=== PATIENT | female | born 1950 | race Asian ===

== ENCOUNTER 2017-04-30 10:58 | Day surgery (SDC) | payer MEDICARE ==
[~2017-04-30] VITALS: Ht 152.4 cm; Wt 60.5 kg
[2017-04-30 13:02] LABS: BASOPHILS 0.4 % (0-2); EOSINOPHILS 2.5 % (0-7); HEMATOCRIT 39.8 % (36.0-48.0); HEMOGLOBIN 12.9 g/dL (12-16); IMMATURE GRANULOCYTES 0.2 % (0-5); LYMPHOCYTES 35.1 % (15-50); MCH 31.1 pg (26.0-34.0); MCHC 32.4 g/dL (31.0-37.0); MCV 95.9 fL (80.0-100.0); MEAN PLATELET VOLUME 11.2 fL (7.4-10.4); MONOCYTES 8.1 % (2-11); NEUTROPHILS 53.7 % (40-80); PLATELET COUNT 192 10x3/uL (130-400); RBC 4.15 10x6/uL (4.00-5.40); RDW 13.6 % (11.5-14.5); WBC 5.5 10x3/uL (4.8-10.8)
[2017-04-30] MEDS ORDERED: ZANAFLEX4 MG PO (13:11)
[2017-04-30] MEDS ORDERED: ADVAIR 500/501 DISK INH (13:11)
[2017-04-30] MEDS ORDERED: SINGULAIR10 MG PO (13:11)
[2017-04-30] MEDS ORDERED: LIPITOR40 MG PO (13:12)
[2017-04-30] MEDS ORDERED: PEPCID AC20 MG PO (13:12)
[2017-04-30] MEDS ORDERED: HYDROCODONE-APA1 TAB PO (13:12)
[2017-04-30] MEDS ORDERED: PAXIL40 MG PO (13:13)
[2017-04-30 13:20] VITALS: BP 148/65; Ht 152.4 cm; Wt 60.5 kg
--- NOTE | 2017-05-02 16:52 | PRO ---
PATIENT:KASSIE RUIZ MEDICAL RECORD: [id number] : 50 LOCATION:[facility] ADMISSION DATE: 04/30/17 PROCEDURE PERFORMED BY: JORDI HAINES DO PROCEDURE DATE: 04/30/17 PROCEDURE: Esophagogastroduodenoscopy with balloon dilation. INDICATION: Previously identified esophageal ring. SCOPE: Olympus video gastroscope. MEDICATIONS: Propofol 150 milligrams IV per anesthesia. ESTIMATED BLOOD LOSS: Minimal. COMPLICATIONS: None. FINDINGS: Informed consent was given. The patient was made comfortable with the above medication. After reaching an adequate level of sedation by slow IV push, the patient was placed on her left side. The endoscope was then advanced under direct visualization through the mouth to the second portion of the duodenum. In the upper esophagus, the site where the previously identified esophageal ring was visualized, based on distance from the incisors at approximately 17 centimeters as well as a ulcer which was present at the site likely related to biopsies. There was no ring visualized on this examination. The endoscope easily traversed the site. The middle esophagus appeared normal. At the distal esophagus just proximal to the gastroesophageal junction, there was a Schatzki's ring. This was easily traversed with the endoscope, but was later dilated with an 18 to 20 millimeter balloon up to 20 millimeters in diameter. The maneuver was successful. There was some evidence of reflux esophagitis located at the gastroesophageal junction. The endoscope was advanced into the stomach and retroflexed to view the cardia where a hiatal hernia was present and previously identified. The fundus and body of the stomach appeared normal, but there was some granularity and erythema within the stomach itself. This was most prominent in the antrum and prepyloric region. There were three superficial ulcerations with clean bases located there. These were likely related to the previous endoscopy where biopsies were taken. The endoscope was passed through the pylorus into the duodenum where the bulb and second portion of the duodenum appeared normal. The endoscope was then withdrawn from the patient. The patient tolerated the procedure well and there were no complications. IMPRESSIONS: 1. Ulcers located in the proximal esophagus where the esophageal ring was previously identified as well as at the gastroesophageal junction and antrum and prepyloric region. These are likely related to the recent endoscopy and biopsies with cold forceps. 2. Schatzki's ring located at the gastroesophageal junction. This was dilated up to 20 millimeters in diameter successfully. 3. Granularity and erythema of the stomach consistent with gastritis. No biopsies were taken as this was just done April 26. 4. Small sliding hiatal hernia. PLAN/RECOMMENDATIONS: 1. Discharge home when recovery parameters are met. 2. Continue current medications and diet. PROCEDURE NOTE [id number] KASSIE RUIZ 3. Follow symptoms. If dysphagia persists, I would recommend barium esophagogram to look further at the proximal and middle esophagus. If this does indeed show a ring, the patient will be brought back for repeat endoscopy and dilation at that location whether or not an obvious ring is visualized. 4. Strict gastroesophageal reflux disease diet and reflux precautions. 5. Avoid nonsteroidal anti-inflammatory drugs VOISE,JORDI Mcdaniel DO at 1652 CC: [id number] DICTATION DATE: 04/30/172201 PERSONAL COMPUTER NETWORK ANALYST: MARION 04/30/172201 [facility] 04/30/17 [id number] [place] [address]
== END 2017-04-30 15:45 | disposition home or self-care (01) ==
LOC: D.OPS 10:58
PROVIDERS: Anesthesiology
DX: K22.2 Esophageal obstruction (principal); K22.10 Ulcer of esophagus without bleeding; K44.9 Diaphragmatic hernia without obstruction or gangrene; Z01.812 Encounter for preprocedural laboratory examination

== ENCOUNTER 2017-12-20 07:20 | Day surgery (SDC) | payer MEDICARE ==
[2017-12-19 13:28] LABS: HEMATOCRIT 40.9 % (36.0-48.0); HEMOGLOBIN 13.8 g/dL (12-16); MCH 31.4 pg (26.0-34.0); MCHC 33.7 g/dL (31.0-37.0); MCV 93.2 fL (80.0-100.0); MEAN PLATELET VOLUME 11.1 fL (7.4-10.4); RBC 4.39 10x6/uL (4.00-5.40); RDW 13.7 % (11.5-14.5); WBC 9.6 10x3/uL (4.8-10.8)
[2017-12-19 13:36] LABS: CALCIUM 9.2 mg/dL (8.5-10.1); CARBON DIOXIDE 29.8 mmol/L (21.0-32.0); CREATININE - SERUM 1.8 mg/dL (0.6-1.3); POTASSIUM - SERUM 3.8 mmol/L (3.5-5.1)
--- NOTE | ~2017-12-20 | OP ---
PATIENT NAME: KASSIE RUIZ MEDICAL RECORD: [id number] :50 LOCATION:[facility] ADMISSION DATE: SURGEON: TREMAINE ESPINOSA MD DATE OF OPERATION: 12/20/2017 PREOPERATIVE DIAGNOSIS: Medial meniscus tear of the right knee. POSTOPERATIVE DIAGNOSIS: Medial meniscus tear of the right knee. PROCEDURE: Arthroscopic partial medial meniscectomy of the right knee. ANESTHESIA: General. INTRAOPERATIVE COMPLICATIONS: None. SUMMARY OF PATHOLOGIC FINDINGS: Consistent with the preoperative diagnosis. She has a complex tear of the posterior horn of the medial meniscus. OPERATIVE SUMMARY IN DETAIL: After obtaining the appropriate preoperative orthopedic surgery consent as well as anesthetic consultation, evaluation and clearance, the patient was brought to the operating room and placed on the operating table in supine position. After adequate general laryngeal mask was administered, tourniquet was placed about the proximal aspect of the right lower extremity. The right lower extremity was then prepped and draped in routine sterile fashion. The leg was elevated and exsanguinated, tourniquet was inflated to 350 mmHg. Routine inferolateral portal was established followed by superomedial portal and inferomedial portal. Diagnostic arthroscopy revealed the above findings. Combination of meniscotome as well as an arthroscopic resector was utilized to debride the meniscus back to stable meniscal elements. Good residual peripheral meniscus was retained. Having completed this, the knee was insufflated with 30 cc of 0.25% Marcaine and 80 mg of Depo-Medrol. Arthroscopy portals were closed in routine interrupted fashion using 4-0 Prolene. Sterile dressings were applied. The patient was awakened and taken to recovery room in stable condition. All final needle and sponge counts were correct. TRANSINT:[id number] Voice Confirmation ID: [id number] DOCUMENT ID: [id number] TREMAINE ESPINOSA MD at 1503 CC: [id number] DICTATION DATE: 12/20/17 1120 CHEMICAL WORKER: 12/20/17 [id number] [place] [id number]
[~2017-12-20 07:20] MED LIST: ACTIVELLA 1 MG-1 TAB PO; ACTOS15 MG PO; ADVAIR 500/501 DISK INH; CENTRUM SILVER1 TA1 PO; HYDROCODONE-APA1 TAB PO; HYDROXYZINE HCL10 MG PO; LIPITOR40 MG PO; PAXIL40 MG PO; PEPCID AC20 MG PO; PROAIR HFA8.5 GM INH; SINGULAIR10 MG PO; ZANAFLEX4 MG PO
[2017-12-20 08:36] VITALS: BP 1323/46; BMI 19.9
[2017-12-20] MEDS ORDERED: HYDROCODONE-APA1 TAB PO (11:35)
== END 2017-12-20 13:00 | disposition home or self-care (01) ==
LOC: D.OPS 07:20 → D.PAN 09:30 → D.OPS 09:30
PROVIDERS: Anesthesiology
DX: S83.241A Other tear of medial meniscus, current injury, right knee, initial encounter (principal); J45.909 Unspecified asthma, uncomplicated; E11.9 Type 2 diabetes mellitus without complications; K21.9 Gastro-esophageal reflux disease without esophagitis; Z01.812 Encounter for preprocedural laboratory examination

== ENCOUNTER 2019-06-09 09:45 | Day surgery (SDC) | payer MEDICARE ==
[~2019-06-09] VITALS: Ht 152.4 cm; Wt 63.2 kg
[2019-06-09 10:18] LABS: HEMATOCRIT 43.3 % (36.0-48.0); HEMOGLOBIN 14.8 g/dL (12-16); MCH 31.8 pg (26.0-34.0); MCHC 34.2 g/dL (31.0-37.0); MCV 92.9 fL (80.0-100.0); MEAN PLATELET VOLUME 11.3 fL (7.4-10.4); RBC 4.66 10x6/uL (4.00-5.40); WBC 6.4 10x3/uL (4.8-10.8)
[2019-06-09 10:23] LABS: ANION GAP 15.3 mmol/L (8-16); CALCIUM 9.7 mg/dL (8.5-10.1); CARBON DIOXIDE 27.8 mmol/L (21.0-32.0); CREATININE - SERUM 1.5 mg/dL (0.6-1.3); POTASSIUM - SERUM 4.1 mmol/L (3.5-5.1)
[2019-06-09 10:52] VITALS: BP 123/50; Ht 152.4 cm; Wt 63.2 kg
--- NOTE | 2019-06-09 13:59 | NUR ---
DC INSTRUCTIONS GIVEN TO PT/SPOUSE. STATE UNDERSTANDING. DC'D IV CATH FULLY INTACT.
--- NOTE | 2019-06-09 14:11 | NUR ---
PT LEFT UNIT VIA WC AT 1407
--- NOTE | 2019-06-10 18:12 | OP ---
PATIENT NAME: KASSIE RUIZ MEDICAL RECORD: [id number] :50 LOCATION:[facility] ADMISSION DATE: SURGEON: JORDI HAINES DO DATE OF OPERATION: 06/09/2019 PROCEDURE: Colonoscopy with polypectomy. INDICATIONS FOR PROCEDURE: Constipation, change in bowel habits, lower abdominal pain. SCOPE: Olympus video pediatric colonoscope. MEDICATIONS: Propofol 420 mg IV per anesthesia. WITHDRAWAL TIME: 10 minutes. ESTIMATED BLOOD LOSS: Minimal. COMPLICATIONS: None. FINDINGS: Informed consent was given. The patient was made comfortable with the above medication. After reaching an adequate level of sedation by slow IV push, the patient was placed on her left side. A digital rectal examination was performed and was normal. The endoscope was then advanced under direct visualization through the rectum to the cecum, confirmed by the presence of the appendiceal orifice and ileocecal valve. The endoscope was slowly withdrawn and mucosa was carefully examined. The prep quality was good. There were 3 polyps visualized on today's examination. Two were located in the transverse colon. They were both benign appearing and mixed between flat sessile polyps. They ranged in size from 4-6 mm in diameter. They were both removed using a hot snare. In the sigmoid colon, there was a single benign-appearing sessile polyp, which measured approximately 2-3 mm in diameter. It was removed using hot forceps in 1 piece. There was evidence of moderate diverticulosis throughout all segments of the colon. Retroflexion was performed in the rectum with visualization of grade II internal hemorrhoids without active bleeding. The endoscope was withdrawn from the patient. The patient tolerated the procedure well and there were no complications. IMPRESSION: 1. Three polyps as described above, removed using a combination of hot snare and hot forceps. 2. Diverticulosis. 3. Grade II internal hemorrhoids without bleeding. PLAN AND RECOMMENDATIONS: 1. Discharge home when recovery parameters are met. 2. Follow up biopsy specimen results. 3. High fiber diet. 4. Continue current medications. 5. Continue MiraLax as needed for constipation. 6. Recall colonoscopy in 3-5 years for personal history of polyps. TRANSINT:[id number] Voice Confirmation ID: [id number] DOCUMENT ID: [id number] OPERATIVE REPORT [id number] KASSIE RUIZ JORDI HAINES DO at 6381 CC: [id number] DICTATION DATE: 06/09/19 1332 SUSTAINABILITY COMMUNICATOR: 06/09/19 1343 [facility] 06/09/19 [id number] [place] [id number]
== END 2019-06-09 14:07 | disposition home or self-care (01) ==
LOC: D.OPS 09:45
PROVIDERS: Anesthesiology; ATTEND Internal Medicine Gastroenterology
DX: D12.3 Benign neoplasm of transverse colon (principal); K63.5 Polyp of colon; K59.00 Constipation, unspecified; Z01.812 Encounter for preprocedural laboratory examination; K57.30 Diverticulosis of large intestine without perforation or abscess without bleeding; K64.1 Second degree hemorrhoids

== ENCOUNTER → 2019-06-19 10:50 | Outpatient (CLI) | payer MEDICARE ==
[2019-06-09 10:52] VITALS: BMI 27.2
== END | disposition home or self-care (01) ==
LOC: D.NM 10:50
PROVIDERS: ATTEND Internal Medicine Gastroenterology
DX: R10.9 Unspecified abdominal pain (principal); R68.81 Early satiety; R11.0 Nausea

== ENCOUNTER 2019-06-30 09:23 | Day surgery (SDC) | payer MEDICARE ==
[~2019-06-30] VITALS: Ht 152.4 cm; Wt 63.2 kg
[2019-06-30 09:51] LABS: HEMATOCRIT 40.7 % (36.0-48.0); HEMOGLOBIN 13.9 g/dL (12-16); MCH 31.7 pg (26.0-34.0); MCHC 34.2 g/dL (31.0-37.0); MCV 92.7 fL (80.0-100.0); MEAN PLATELET VOLUME 11.4 fL (7.4-10.4); RBC 4.39 10x6/uL (4.00-5.40); RDW 13.8 % (11.5-14.5); WBC 5.7 10x3/uL (4.8-10.8)
[2019-06-30 09:58] LABS: ANION GAP 10.4 mmol/L (8-16); CALCIUM 9.3 mg/dL (8.5-10.1); CARBON DIOXIDE 31.6 mmol/L (21.0-32.0); CREATININE - SERUM 1.7 mg/dL (0.6-1.3)
[2019-06-30 10:39] VITALS: BP 124/53; Ht 152.4 cm; Wt 63.2 kg
--- NOTE | 2019-07-03 07:40 | OP ---
PATIENT NAME: KASSIE RUIZ MEDICAL RECORD: [id number] :50 LOCATION:[facility] ADMISSION DATE: SURGEON: JORDI HAINES DO DATE OF OPERATION: 06/30/2019 PROCEDURE: EGD with biopsies and balloon dilation. INDICATIONS FOR PROCEDURE: Dysphagia. SCOPE: Olympus video gastroscope. MEDICATIONS: Propofol 280 mg IV per anesthesia. ESTIMATED BLOOD LOSS: Minimal. COMPLICATIONS: None. FINDINGS: Informed consent was given. The patient was made comfortable with the above medication. After reaching an adequate level of sedation by slow IV push, the patient was placed on her left side. The endoscope was advanced under direct visualization through the mouth to the second portion of the duodenum with ease. The entire esophagus appeared normal. Random cold forceps biopsies were taken from the midesophagus to rule out the presence of eosinophils in light of the patient's dysphagia. At the GE junction, there was evidence of LA class A reflux-induced esophagitis as well as a nonobstructive Schatzki's ring. At the end of the procedure, a CRE through the scope balloon was placed across the stricture and the stricture was dilated to 20 mm maximum diameter successfully. The endoscope was advanced beyond the GE junction into the stomach and retroflexed to view the cardia and fundus. There was a small sliding hiatal hernia without associated ulcerations present. The fundus and body of the stomach appeared normal. As the endoscope reached the antrum and prepyloric region, there were multiple erosions and erythema and granularity consistent with gastritis as well as a few very superficial clean based ulcerations. Appearances were consistent with NSAIDs. Random cold forceps biopsies were taken from the antrum and incisura to rule out the presence of H. pylori. The endoscope was advanced beyond the pylorus into the duodenum, which appeared normal to the second portion. The endoscope was withdrawn from the patient. The patient tolerated the procedure well and there were no complications. IMPRESSION: 1. LA class A reflux-induced esophagitis. 2. Nonobstructing Schatzki's ring dilated to 20 mm maximum diameter. 3. Small sliding hiatal hernia. 4. Gastritis. 5. Few antral and prepyloric gastric ulcers. PLAN AND RECOMMENDATIONS: 1. Discharge home when recovery parameters are met. 2. Follow up biopsy specimen results. 3. GERD diet and reflux precautions. 4. Omeprazole 40 mg daily times 60 days followed by Zantac 150 mg p.r.n. 5. Notify GI clinic if symptoms worsen or fail to improve. 6. If dysphagia persists, consider manometry study. OPERATIVE REPORT [id number] KASSIE RUIZ TRANSINT:[id number] Voice Confirmation ID: [id number] DOCUMENT ID: [id number] JORDI HAINES DO at 0740 CC: [id number] DICTATION DATE: 06/30/19 1112 OCEANOGRAPHY PROFESSOR: 06/30/19 1135 [facility] 06/30/19 [id number] [place] [address]
== END 2019-06-30 12:10 | disposition home or self-care (01) ==
LOC: D.OPS 09:23
PROVIDERS: Anesthesiology; ATTEND Internal Medicine Gastroenterology
DX: K21.0 Gastro-esophageal reflux disease with esophagitis (principal); K22.2 Esophageal obstruction; K44.9 Diaphragmatic hernia without obstruction or gangrene; K29.70 Gastritis, unspecified, without bleeding; K25.9 Gastric ulcer, unspecified as acute or chronic, without hemorrhage or perforation; Z01.812 Encounter for preprocedural laboratory examination

== ENCOUNTER → 2021-02-01 22:39 | Outpatient (CLI) | payer MEDICARE ==
[2019-06-30 10:39] VITALS: BMI 27.2
[2021-02-01 23:30] LABS: HEMATOCRIT 40.4 % (36.0-48.0); LYMPHOCYTES 35.4 % (15-50); MCH 31.5 pg (26.0-34.0); MCHC 32.2 g/dL (31.0-37.0); MCV 97.8 fL (80.0-100.0); MEAN PLATELET VOLUME 12.5 fL (7.4-10.4); NEUTROPHILS 52.2 % (40-80); RBC 4.13 10x6/uL (4.00-5.40); RDW 13.5 % (11.5-14.5); WBC 4.7 10x3/uL (4.8-10.8)
[2021-02-01 23:33] LABS: PLATELET COUNT 112 10x3/uL (130-400)
[2021-02-02 00:29] LABS: ERYTHROCYTE SEDIMENTATION RATE 22 mm/hr (0-30)
== END | disposition home or self-care (01) ==
LOC: D.LABREF 22:39
PROVIDERS: ATTEND Clinical Nurse Specialist Family Health
DX: M13.0 Polyarthritis, unspecified (principal)

== ENCOUNTER → 2021-02-07 18:18 | Outpatient (CLI) | payer MEDICARE ==
[2019-06-30 10:39] VITALS: BMI 27.2
[2021-02-09 09:13] LABS: ANA REFLEX - DIRECT Negative (Negative)
== END | disposition home or self-care (01) ==
LOC: D.LABREF 18:18
PROVIDERS: ATTEND Clinical Nurse Specialist Family Health
DX: M13.0 Polyarthritis, unspecified (principal)